=== PATIENT | female | born 1945 ===

== ENCOUNTER 2018-10-12 05:15 | Day surgery (SDC) | payer OTHER ==
[~2018-10-12 05:15] MED LIST: ACID CONTROLLER20 MG; ADVIL100 MG; ALLOPURINOL300 MG; ASPIRIN81 MG; ATORVASTATIN CA40 MG; CENTRUM CHEWAB1 EACH; IBESARTAN; METFORMIN HCL500 M1; TOPROL XL50 M1; VITAMINA B12; VITAMINA D
[2018-10-12] MEDS ORDERED: PERCOCET 5-3251 EACH PO (08:53)
[2018-10-12] MEDS ORDERED: RECTICARE30 GM TOP (08:54)
== END 2018-10-12 13:05 | disposition home or self-care (01) ==
LOC: CIR.AMB 05:15
DX: K64.8 Other hemorrhoids (principal); K64.4 Residual hemorrhoidal skin tags